=== PATIENT | female | born 1965 | race Caucasian/White ===

== ENCOUNTER 2018-10-02 12:02 | Outpatient (CLI) | payer BC ==
--- NOTE | 2018-10-08 10:51 | MMO ---
Bilateral MAMMO Bilat Screen [facility]. CLINICAL HISTORY: Patient is 53 years old and is seen for screening. The patient has no family history of breast cancer. The patient has no personal history of cancer. VIEWS: The views performed were: bilateral craniocaudal with tomosynthesis and bilateral mediolateral oblique with tomosynthesis. FILMS COMPARED: The present examination has been compared to a prior imaging study performed at MAMMOGRAM FINDINGS: There are scattered fibroglandular densities. There is an area of architectural distortion seen in the CC view only seen in the posterior of the right breast. In the left breast, there are no suspicious masses, calcifications or areas of architectural distortion. IMPRESSION: AREA OF ARCHITECTURAL DISTORTION IN THE RIGHT BREAST REQUIRES ADDITIONAL EVALUATION. SPOT COMPRESSION IS RECOMMENDED. AN ULTRASOUND EXAM IS RECOMMENDED IF NEEDED. THE RESULTS OF THIS EXAM WERE SENT TO THE PATIENT. ACR BI-RADS Category 0 - Incomplete: Need additional imaging evaluation. [facility] will notify the patient of the need for additional imaging services. MAMMOGRAPHY NOTE: 1. A negative mammogram report should not delay a biopsy if a dominant of clinically suspicious mass is present. 2. Approximately 10% to 15% of breast cancers are not detected by mammography. 3. Adenosis and dense breasts may obscure an underlying neoplasm.
== END 2018-10-02 12:03 | disposition home or self-care (01) ==
LOC: BICMAMMO 12:02
PROVIDERS: ATTEND Family Medicine
DX: Z12.31 Encounter for screening mammogram for malignant neoplasm of breast (principal); L90.5 Scar conditions and fibrosis of skin
CPT/HCPCS: 77063; 77067

== ENCOUNTER 2018-10-11 14:22 | Outpatient (CLI) | payer BC ==
--- NOTE | 2018-10-11 14:51 | MMO ---
Right Breast MAMMO Unilat Diag [facility]. CLINICAL HISTORY: Patient is 53 years old and is seen for diagnostic exam. The patient has no family history of breast cancer. The patient has no personal history of cancer. VIEWS: The views performed were: right craniocaudal spot compression with tomosynthesis and right mediolateral with tomosynthesis. FILMS COMPARED: The present examination has been compared to prior imaging studies performed at MAMMOGRAM FINDINGS: There are scattered fibroglandular densities. There are no suspicious masses, suspicious calcifications, or new areas of architectural distortion. The asymmetry seen at screening mammography does not persist at additional imaging, compatible with superimposed tissue. IMPRESSION: THERE IS NO MAMMOGRAPHIC EVIDENCE OF MALIGNANCY. A ROUTINE FOLLOW-UP MAMMOGRAM IN 1 YEAR IS RECOMMENDED. THE RESULTS OF THIS EXAM WERE SENT TO THE PATIENT. ACR BI-RADS Category 1 - Negative MAMMOGRAPHY NOTE: 1. A negative mammogram report should not delay a biopsy if a dominant of clinically suspicious mass is present. 2. Approximately 10% to 15% of breast cancers are not detected by mammography. 3. Adenosis and dense breasts may obscure an underlying neoplasm.
== END 2018-10-11 14:23 | disposition home or self-care (01) ==
LOC: BICMAMMO 14:22
PROVIDERS: ATTEND Family Medicine
DX: Z12.31 Encounter for screening mammogram for malignant neoplasm of breast (principal)
CPT/HCPCS: G0279

== ENCOUNTER 2018-12-20 09:59 | Outpatient (CLI) | payer BC ==
[2018-12-20] MEDS ORDERED: Iopamidol 370 76% 100 ML VIAL ONE (12:46)
--- NOTE | 2018-12-20 13:39 | CT ---
CT ABDOMEN AND PELVIS WITH AND WITHOUT CONTRAST: Date: 12/20/18 COMPARISON: None. HISTORY: Hematuria. TECHNIQUE: Axial CT imaging at 5 mm intervals from lung bases through pubic symphysis with and without IV contra st using a CT urogram protocol. Coronal and sagittal reformatted imaging obtained. FINDINGS: Visualized lung bases are unremarkable. No free intraperitoneal air. No evidence for nephrolithiasis or obstructive uropathy. The liver, spleen, and pancreas are unremarkable. There is heterogeneity of the gallbladder contents which could represent sludge or noncalcified stones. There is a very small hiatal hernia noted. Adrenal glands and kidneys are unremarkable on pre and postcontrast imaging. There is a tiny hypodens ity associated with the mid pole of the left kidney measuring 5 mm, too small to characterize. Urographic phase imaging of bilateral kidneys and ureters appear unremarkable. Evaluation of the bowel is limited without oral contrast media. There is diverticulosis of the descen ding colon and the sigmoid colon with no evidence for diverticulitis. There is a large mass within the anterior aspect of the pelvis abutting the ventral aspect of the sun'aq ammon measuring 9.3 x 8.6 x 11.8 cm. This contains solid components, as well as fat, and is most consis tent with a large ovarian dermoid. There are areas of heterogeneous hypodensity within the uterus sug gesting multiple incompletely assessed uterine fibroids. The vascular structures of the abdomen/pelvis appear patent. There is mild scattered atherosclerotic calcification of the infrarenal abdominal aorta. No abdominal or pelvic lymphadenopathy is noted. Review of the osseous structures demonstrate no worrisome lytic or blastic bone lesion. IMPRESSION: 1. No evidence for nephrolithiasis or obstructive uropathy. No renal mass noted on either side. 2. Large pelvic mass containing fat and solid components consistent with an ovarian dermoid measurin g up to 11.8 cm. 3. Probable gallbladder sludge and/or noncalcified gallstones. 4. Probable uterine fibroid disease. CODE T. POS: OFF
== END 2018-12-20 10:00 | disposition home or self-care (01) ==
LOC: BICCT 09:59 → CT 10:00
PROVIDERS: ATTEND Family Medicine
DX: R31.21 Asymptomatic microscopic hematuria (principal); R19.00 Intra-abdominal and pelvic swelling, mass and lump, unspecified site
CPT/HCPCS: 74178; Q9967

== ENCOUNTER 2019-03-17 06:23 | Outpatient (CLI) | payer BC ==
[2019-03-17 12:07] LABS: Bacteria/HPF None Seen HPF (None Seen); Bilirubin Negative (Negative); Blood, Urine 1+ (Negative); Clarity Clear (Clear); Glucose, Urine (Dipstick) Normal (Negative); Leukocyte Negative Leu/uL (Negative); Nitrite Negative (Negative); Protein, Urine (Dipstick) Negative (Neg-Trace); RBC/HPF 0-3 HPF (0-3); Squamous Epithelial 0-3 HPF (0-3); Urobilinogen Normal mg/dL (Less than 2); WBC/HPF 0-3 HPF (0-3)
[2019-03-17 12:15] LABS: INR-International Normal Ratio 0.9; PTT 29.3 SEC (22.9-36.1); Prothrombin Time 12.1 SEC (12.0-14.7)
[2019-03-17 12:19] LABS: Anion Gap 12 mmol/L (10-20); BUN (Urea Nitrogen) 11 mg/dL (9.8-20.1); Calc. Creatinine Clearance 0 mL/min (70-130); Calcium 9.6 mg/dL (7.8-10.44); Carbon Dioxide 27 mmol/L (22-29); Chloride 104 mmol/L (98-107); Estimated GFR-MDRD 73; Glucose 70 mg/dL (70-105); Potassium 4.1 mmol/L (3.5-5.1); Sodium 139 mmol/L (136-145)
== END 2019-03-17 06:24 | disposition home or self-care (01) ==
LOC: LABBT 06:23
PROVIDERS: ATTEND Obstetrics & Gynecology
DX: Z01.812 Encounter for preprocedural laboratory examination (principal); N39.3 Stress incontinence (female) (male)
CPT/HCPCS: 80048; 81001; 85610; 85730; 87086

== ENCOUNTER 2019-03-24 05:57 | Day surgery (SDC) | payer BC ==
[2019-03-17 09:54] VITALS: BMI 32.8
[2019-03-17 12:02] LABS: Hemoglobin 13.1 g/dL (12.0-16.0); Mean Corpuscular HGB CONC 33.3 g/dL (32.0-36.0); Mean Corpuscular Volume 87.3 fL (78.0-98.0); Mean Platelet Volume 8.3 fL (7.4-10.4); Platelet Count 245 thou/uL (130-400); RBC Distribution Width 11.5 % (11.5-14.5); White Blood Cell (WBC) Count 6.6 thou/uL (4.8-10.8)
[2019-03-24] MEDS ORDERED: Fentanyl 100 MCG/2 ML VIAL ONE ×2 (06:43→11:48)
[2019-03-24] MEDS ORDERED: CeleCOXIB 100 MG CAP ONE (06:52)
[2019-03-24] MEDS ORDERED: Levofloxacin 500 mg/D5W 100 ml Premix Bag ONE (06:52)
[2019-03-24] MEDS ORDERED: Famotidine/PF 20 mg/2ml Vial ONE (06:52)
[2019-03-24] MEDS ORDERED: Scopolamine 1.5 mg/72 hour Patch ONE (06:57)
[2019-03-24] MEDS ORDERED: Iothalamate Meglumine 60% 50 ML VIAL FS ONE (07:01)
[2019-03-24] MEDS ORDERED: Bupivacaine PF 0.5% 30 ML VIAL ONE (07:01)
[2019-03-24] MEDS ORDERED: Clindamycin/D5W 900 mg/50 ml Premix Bag ONE (07:25)
[2019-03-24] MEDS ORDERED: Ropivacaine 0.2% 550 ML 750 ML NERVE BLCK SCH (07:45)
[2019-03-24] MEDS ORDERED: EPINEPHrine 1 MG/ML AMP ONE (07:57)
[2019-03-24] MEDS ORDERED: Ropivacaine HCl/PF 750 ML in Premix Bag 1 BAG NERVE BLCK SCH (08:15)
--- NOTE | 2019-03-24 10:24 | OP ---
DATE OF PROCEDURE: 03/24/2019 PREOPERATIVE DIAGNOSES: A 54-year-old female with history of microscopic hematuria, large pelvic mass. POSTOPERATIVE DIAGNOSES: A 54-year-old female with history of microscopic hematuria, large pelvic mass. PROCEDURES PERFORMED: Cystoscopy, bilateral retrograde, left 6 x 26, right 6 x 24 double-J ureteral stent, Lopez catheter placement. ANESTHESIA: General. COMPLICATIONS: None apparent. DISPOSITION: To General OR room for gynecologic procedure. INDICATIONS FOR PROCEDURE AND HISTORY: Ms. Duenas is a pleasant 54-year-old female, who presented to my office for evaluation of microscopic hematuria. CT demonstrating a large pelvic mass, scheduled for hysterectomy today. Due to proximity and the mass effect of a large pelvic mass on bilateral ureters, intraoperative ureteral stent was advised. Risks and complications of the procedure and indications reviewed. The patient has been fully informed that despite ureteral stent, ureteral injury, bladder injury can ensue. All questions answered to her satisfaction and she desired to proceed. DESCRIPTION OF PROCEDURE: After an informed consent was signed, the patient was taken to the operating room, placed in a dorsal lithotomy position with the genital area prepped and draped in the usual surgical sterile fashion. A 21-Nigerian cystoscope was utilized for cystoscopy, which demonstrated normal ureteral orifices in orthotopic position. No bladder mass, trabeculation, or stones were appreciated. An open-ended catheter was utilized to perform a retrograde pyelogram which demonstrated mild deviation laterally of bilateral ureters due to a large pelvic mass, however, no evidence of hydronephrosis. A left 6 x 26 double-J ureteral stent was passed. As it was tad long on her the left side, we decided to place a 6 x 24 double-J ureteral stent on the right side, which was performed uneventfully with retrograde pyelogram bilateral. Again, noted was deviated mildly pelvic ureters due to a large pelvic mass with no evidence of hydronephrosis. At the end of the procedure, I did place an 18-Nigerian 3-way Lopez catheter for Gynecology as they are going to distend the bladder intraoperatively for visualization. Pending gynecologic progress of surgical intervention, she was informed that elective stent pull will be performed at a later date. Job ID: [id number] [facility]
[2019-03-24] MEDS ORDERED: Ketorolac Tromethamine 30 MG/ML VIAL IVP PRN (10:37)
[2019-03-24] MEDS ORDERED: Promethazine HCl 25 MG/ML VIAL IM PRN ×2 (10:37→13:34)
[2019-03-24] MEDS ORDERED: Ondansetron HCl/PF 4 MG/2 ML Vial IVP PRN (10:37)
[2019-03-24] MEDS ORDERED: Meperidine HCl/PF 25 MG/ML VIAL SLOW IVP PRN ×2 (10:37→13:34)
[2019-03-24] MEDS ORDERED: Ketorolac Tromethamine 30 MG/ML VIAL ONE (11:12)
--- NOTE | 2019-03-24 11:42 | RAD ---
IVP RETROGRADE CD: HISTORY: Stent placement. FINDINGS: Two intraoperative images of the abdomen demonstrate placement of bilateral renal stents. POS: MANDY
--- NOTE | 2019-03-24 11:56 | OP ---
DATE OF PROCEDURE: 03/24/2019 PREOPERATIVE DIAGNOSIS: Pelvic mass. POSTOPERATIVE DIAGNOSIS: Left ovarian dermoid cyst. PROCEDURES PERFORMED: 1. Robotic-assist total laparoscopic hysterectomy with bilateral salpingectomy, self-contained extraction of left adnexal mass through supraumbilical port. 2. Prior to hysterectomy, placement of bilateral ureteral indwelling stents per Dr. Demarco. 3. ON-Q catheter placement. DIRECT MARKETING COORDINATOR: Noy Muñiz PA-C. COMPLICATIONS: None. ESTIMATED BLOOD LOSS: 50 mL. IV FLUIDS: 1 L. INTRAOPERATIVE FINDINGS: Normal-appearing vagina and cervix. Uterus sounds to 6 cm. LAPAROSCOPIC FINDINGS: 1. Large pelvic mass arising from the left ovary, filling the pelvis with intracystic contents, consistent with dermoid, torsion of this ovary noted at the time of removal. 2. Normal-appearing right tube and ovary. 3. Small uterus with serosal fibroids noted. 4. Surgical site was hemostatic. DESCRIPTION OF PROCEDURE: The patient was brought back to the OR from the cystoscopy room, already intubated and with IV fluids running. Once the patient was in OR6, she was placed in dorsal supine position. Her arms were tucked at her side and then her legs were moved to low dorsal lithotomy position. The abdomen and vagina were then prepped and draped in normal fashion for gynecologic laparoscopy. Three-way catheter that had previously been placed was removed as it was no longer sterile and a Lopez catheter was placed using sterile technique with the Lopez and placed with a Jennifer syringe at its tip for bladder manipulation during the case. An operative speculum was placed into the vagina and the cervix was easily visualized and grasped with single-tooth tenaculum. The uterus was sounded to approximately 6 cm. The Relatient-To The Tops manipulator was assembled with a 6 cm tip and a 3.5 cm cup and placed into the uterus and vagina in normal fashion for uterine manipulation. The intrauterine and intravaginal balloons were inflated. The surgeon's gloves were changed and attention was turned to the laparoscopic portion of the procedure. Beginning at approximately 2 cm above the supraumbilical fold, a 12 mm skin incision was made with a scalpel. A Veress needle was placed through the skin incision and the abdomen was insufflated without difficulty. The Veress needle was removed and a 12-mm trocar was placed through the distended abdomen without difficulty. The obturator was then removed from the trocar and the laparoscope was placed through the trocar with the above findings noted. The patient was then placed in Trendelenburg position. The right and left lower quadrant 8-mm ports were placed under direct visualization, and using similar technique as well as a right upper quadrant 11-mm port. All ports were placed without difficulty and in routine fashion. Next, the robotic arms were docked with the monopolar scissors and the bipolar fenestrated graspers placed under direct laparoscopic view into the operative field. The pelvic mass was then manipulated and noted to be arising from the left ovary. It was noted to be torsed as well. The left fallopian tube was edematous proximal to the torsion. The fallopian tube was dissected away from the IP ligament. The pelvic mass was manipulated and the ureter was visually appreciated with palpation, noted to be running well away from the IP ligament. After the fallopian tube was dissected away from the IP ligament at the site of the torsion, the IP ligament was cauterized and transected using bipolar and monopolar cautery. This freed the left ovary and pelvic mass away from the sidewall and it mobilized to the midline. The left ovary was then further dissected away from the pelvic anatomy by cauterizing and transecting the fallopian tube and mesosalpinx as well as the utero-ovarian ligament, completely freeing the mass. The mass was placed in the left upper quadrant away from the operative field. The hysterectomy portion was then began on the patient's left side. The left round ligament was identified, cauterized, and transected. It was divided into anterior and posterior leaves down towards the level of the uterine artery. The bladder reflection was identified and dissected through the anterior leaf, gently dissecting the bladder flap away from the planned colpotomy site. The uterine artery on the patient's left side was skeletonized, cauterized, and transected. Attention was then turned to the contralateral side. The right IP ligament was identified. The ureter on the patient's right side was palpated and visually identified. The IP ligament on the patient's right side was cauterized and transected. The right ovary and fallopian tube were dissected away from the mesosalpinx and pelvic sidewall. The round ligament on the patient's right side was then cauterized, divided into anterior and posterior leaves, and skeletonized down towards the level of the uterine artery. The bladder reflection on the patient's right side was easily identified. The bladder flap was completed across the anterior aspect of the cervix, and in thin layers, the bladder was gently dissected away from the planned colpotomy site. After the bladder flap was created and the uterine arteries were transected bilaterally, attention was turned to the colpotomy portion of the procedure. The colpotomy was completed circumferentially using monopolar scissors. After the colpotomy was complete, the specimen was retracted into the vagina. This included the uterus, right tube, and right ovary. The vaginal cuff and surgical pedicles were then copiously irrigated and any small areas of bleeding were controlled with bipolar cautery. The vaginal cuff was then closed with Stratafix suture in a running fashion and in 2 layers. After the vaginal cuff was closed , it was irrigated and suctioned dry. The pressure was dropped to 6 mmHg and no areas of bleeding were noted. Surgical pedicles were inspected as well at the site of the right and left adnexal dissections and no areas of bleeding were noted. The ovarian specimen was then placed into a laparoscopic bag that had been placed through the supraumbilical incision and GelPOINT entrance site earlier in the case. The bag was brought down into the pelvis and opened up. The ovarian specimen was placed into the bag and cinched closed. The string in the bag was then brought through the GelPOINT at the supraumbilical port site. An ON-Q catheter tip was placed under direct visualization and placed into the pelvis after the specimen had been brought through the supraumbilical incision. At that time, the ovarian specimen was brought through the incision. The bag was opened up to the outside with the ovary contained inside the bag. A small stab incision was made into the ovary and copious amounts of thick gaseous fluid was noted to spontaneous expel from the specimen. Hemostats were used to grab the hair specimen from the dermoid. Once the dermoid was compressed enough to easily pass through the supraumbilical incision, it was brought through, completely contained within the back. Under laparoscopic view with the abdomen re-insufflated, the ON-Q catheter tip was guided down into the pelvis. All instruments were removed from the abdomen and the count was correct. The gas was released from the abdomen. The supraumbilical port site was closed at the fascial layer with Vicryl suture. All 4 skin incisions were closed with Monocryl suture and dressed with Dermabond dressing. The ON-Q catheter had a sterile Tegaderm dressing applied. The vagina was inspected at the end of the case and no bleeding was noted from the vaginal cuff or from the vagina. The patient was then cleaned, dried, extubated, taken out of lithotomy position, and transferred to the recovery room in good condition. Job ID: [id number] MTDD
[2019-03-24] MEDS ORDERED: Simethicone Chewable 80 MG TAB PO PRN (13:34)
[2019-03-24] MEDS ORDERED: Ondansetron PF 4 MG/2 ML Vial IVP PRN (13:34)
[2019-03-24] MEDS ORDERED: Bisacodyl 10 MG SUPP PR PRN (13:34)
[2019-03-24] MEDS ORDERED: Zolpidem Tartrate 5 MG TAB PO PRN (13:34)
[2019-03-24] MEDS ORDERED: HYDROcodone/Acetaminophen 5/325 mg Tablet PO PRN ×2 (13:34)
[2019-03-24] MEDS ORDERED: diphenhydrAMINE 25 MG CAP PO PRN (13:34)
[2019-03-24] MEDS ORDERED: Morphine 4 MG/ML VIAL SLOW IVP PRN (13:34)
[2019-03-24] MEDS ORDERED: Sodium Chloride 0.9% 1,000 ML IV SCH (13:34)
[2019-03-24] MEDS ORDERED: Ibuprofen 800 MG TAB PO SCH (14:00)
[2019-03-24] MEDS ORDERED: diphenhydrAMINE 50 MG/ML VIAL ONE (14:43)
[2019-03-24] MEDS ORDERED: Ondansetron PF 4 MG/2 ML Vial ONE (14:43)
[2019-03-24] MEDS ORDERED: Glycopyrrolate 0.2 MG/ML 5 ML SYRINGE ONE (14:43)
[2019-03-24] MEDS ORDERED: PROPOFOL 200 MG/20 ML VIAL ONE (14:43)
[2019-03-24] MEDS ORDERED: Rocuronium Bromide 10 MG/ML (10ML VIAL) ONE (14:43)
[2019-03-24] MEDS ORDERED: Ketorolac Tromethamine 30 MG/ML VIAL IVP SCH (18:00)
[2019-03-24 20:02] VITALS: BP 131/82; TEMP 98
== END 2019-03-24 20:10 | disposition home or self-care (01) ==
LOC: SDC 05:57 → 3SE 12:29 → SDC 20:10
PROVIDERS: ATTEND Obstetrics & Gynecology
PROC: 0UT94ZZ Resection of Uterus, Percutaneous Endoscopic Approach (ICD-10-PCS; principal; 2019-03-24)
PROC: 0UT54ZZ Resection of Right Fallopian Tube, Percutaneous Endoscopic Approach (ICD-10-PCS; principal; 2019-03-24)
PROC: 0T9780Z Drainage of Left Ureter with Drainage Device, Via Natural or Artificial Opening Endoscopic (ICD-10-PCS; principal; 2019-03-24)
PROC: 0UT04ZZ Resection of Right Ovary, Percutaneous Endoscopic Approach (ICD-10-PCS; principal; 2019-03-24)
DX: D27.1 Benign neoplasm of left ovary (principal); N83.291 Other ovarian cyst, right side; D25.2 Subserosal leiomyoma of uterus; N72 Inflammatory disease of cervix uteri; N39.3 Stress incontinence (female) (male); Z79.899 Other long term (current) drug therapy; Z87.891 Personal history of nicotine dependence; Z88.1 Allergy status to other antibiotic agents
CPT/HCPCS: 36415; 74420; 85027; 86850; 86900; 86901; 88307; C1758; C1769; J0171; J1200; J1885; J1956; J2405; J2704; J2795; J3010; J3490; S0020; S0028

== ENCOUNTER 2020-10-06 21:02 | Emergency (ER) | payer OTHER, BC ==
[2020-10-06] MEDS ORDERED: Ketorolac Tromethamine 30 MG/ML VIAL ONE ×2 (21:31→21:33)
[2020-10-06] MEDS ORDERED: Amoxicillin/Potassium Clav 875 MG TAB ONE (23:03)
== END 2020-10-06 23:05 | disposition home or self-care (01) ==
LOC: ERS 21:02
DX: S61.250A Open bite of right index finger without damage to nail, initial encounter (principal); J45.909 Unspecified asthma, uncomplicated; W54.0XXA Bitten by dog, initial encounter
CPT/HCPCS: 96372; J1885

== ENCOUNTER 2022-01-06 14:52 | Outpatient (CLI) | payer BC | END 2022-01-06 14:53 | disposition home or self-care (01) | LOC: SCSRAD 14:52 | PROVIDERS: ATTEND Family Medicine | DX: M79.605 Pain in left leg (principal) ==

== ENCOUNTER 2022-01-11 08:21 | Outpatient (CLI) | payer BC | END 2022-01-11 08:22 | disposition home or self-care (01) | LOC: ULT 08:21 | PROVIDERS: ATTEND Family Medicine | DX: M79.605 Pain in left leg (principal) ==

== ENCOUNTER 2022-07-14 11:17 | Outpatient (CLI) | payer BC | END 2022-07-14 11:18 | disposition home or self-care (01) | LOC: DTY/OP 11:17 | PROVIDERS: ATTEND Family Medicine | DX: E11.22 Type 2 diabetes mellitus with diabetic chronic kidney disease (principal); N18.9 Chronic kidney disease, unspecified | CPT/HCPCS: 97802 ==

== ENCOUNTER 2023-09-14 11:45 | Outpatient (CLI) | payer BC | END 2023-09-14 11:46 | disposition home or self-care (01) | LOC: PET 11:45 | PROVIDERS: ATTEND Student in an Organized Health Care Education/Training Program | DX: R91.1 Solitary pulmonary nodule (principal); R91.8 Other nonspecific abnormal finding of lung field | CPT/HCPCS: 78815; A9552 ==

== ENCOUNTER 2023-10-02 08:11 | Day surgery (SDC) | payer BC ==
[2023-10-02 08:32] LABS: #Basophils 0.05 10x3/uL (0.0-0.2); %Basophils 0.7 % (0.0-1.0); %Eosinophils 3.2 % (0.0-10.0); %Lymphocytes 27.7 % (21.0-51.0); %Monocytes 8.1 % (0.0-10.0); %Neutrophils 60.2 % (42.0-75.0); Hematocrit 39.5 % (36.0-47.0); Hemoglobin 12.8 g/dL (12.0-16.0); Mean Corpuscular HGB CONC 32.4 g/dL (32.0-36.0); Mean Corpuscular Hemoglobin 28.7 pg (27.0-31.0); Mean Corpuscular Volume 88.6 fL (78.0-98.0); Mean Platelet Volume 9.8 fL (7.4-10.4); Platelet Count 253 10x3/uL (130-400); RBC Distribution Width 12.7 % (11.5-14.5); Red Blood Cell (RBC) Count 4.46 mill/uL (4.20-5.40)
[2023-10-02 08:58] LABS: PTT 30.6 sec (22.9-36.1); Prothrombin Time 12.8 sec (12.0-14.7)
[2023-10-02] MEDS ORDERED: Midazolam HCl 2 mg/2 ml Vial ONE (09:10)
[2023-10-02] MEDS ORDERED: Lidocaine 1% w/Epinephrine 1:100K 20 ML VIAL ONE (09:10)
[2023-10-02] MEDS ORDERED: Lidocaine 1% PF 5 ML VIAL ONE (09:10)
[2023-10-02] MEDS ORDERED: Sodium Bicarbonate 2.5 MEQ/5 ML SDV ONE (09:10)
[2023-10-02] MEDS ORDERED: fentaNYL 50 mcg/mL 1 mL Vial ONE ×2 (09:10→09:11)
[2023-10-02 11:45] VITALS: BP 138/89; TEMP 98.5
== END 2023-10-02 13:40 | disposition home or self-care (01) ==
LOC: CT 08:11
PROVIDERS: ATTEND Student in an Organized Health Care Education/Training Program
PROC: 0BBF3ZX Excision of Right Lower Lung Lobe, Percutaneous Approach, Diagnostic (ICD-10-PCS; principal; 2023-10-02)
DX: C34.31 Malignant neoplasm of lower lobe, right bronchus or lung (principal); Z88.1 Allergy status to other antibiotic agents; Z91.041 Radiographic dye allergy status; Z88.8 Allergy status to other drugs, medicaments and biological substances; F17.210 Nicotine dependence, cigarettes, uncomplicated
CPT/HCPCS: 32408; 36415; 71045; 77012; 85025; 85610; 85730; 88305; 88333; 88334; 88341; 88342; 88360; J2250; J3010

== ENCOUNTER 2023-10-12 08:30 | Inpatient (IN) | payer BC ==
[2023-10-12 11:36] VITALS: BMI 33.3
[2023-10-16] MEDS ORDERED: EPINEPHrine 1 MG/ML VIAL ONE (06:45)
[2023-10-16] MEDS ORDERED: Bupivacaine 0.25% HCL 30 ML VIAL ONE (06:45)
[2023-10-16] MEDS ORDERED: PROPOFOL 20 ML ONE (07:11)
[2023-10-16] MEDS ORDERED: Fentanyl 250 MCG/5 ML VIAL ONE (07:11)
[2023-10-16] MEDS ORDERED: Clindamycin/D5W 900 mg/50 ml Premix Bag ONE (07:19)
[2023-10-16] MEDS ORDERED: Glycopyrrolate 0.2 MG/ML 5 ML SYRINGE ONE (08:24)
[2023-10-16] MEDS ORDERED: PHENYLEPHRINE-NS 100 MCG/ML 10 ML SYRINGE ONE (08:24)
[2023-10-16] MEDS ORDERED: Lidocaine 1% PF 5 ML VIAL ONE (09:41)
[2023-10-16] MEDS ORDERED: Dexamethasone 4 mg/ml Vial ONE (09:42)
[2023-10-16] MEDS ORDERED: Ondansetron PF 4 MG/2 ML Vial ONE (09:42)
[2023-10-16] MEDS ORDERED: Rocuronium Bromide 10 MG/ML (10ML VIAL) ONE (10:13)
[2023-10-16] MEDS ORDERED: ePHEDrine Sulfate 50 MG/10 ML VIAL ONE (10:34)
[2023-10-16] MEDS ORDERED: SUGAMMADEX SODIUM 200 MG/2 ML VIAL ONE (11:25)
[2023-10-16] MEDS ORDERED: HYDROmorphone 2 MG/ML VIAL ONE (11:25)
[2023-10-16] MEDS ORDERED: Ondansetron HCl/PF 4 MG/2 ML Vial IVP PRN (11:26)
[2023-10-16] MEDS ORDERED: HYDROmorphone 2 MG/ML VIAL SLOW IVP PRN (11:26)
[2023-10-16] MEDS ORDERED: Promethazine HCl 25 MG/ML VIAL IM PRN ×2 (11:26→12:57)
[2023-10-16] MEDS ORDERED: PACU-Morphine 4MG/ML VIAL SLOW IVP PRN (11:26)
[2023-10-16] MEDS ORDERED: Ketorolac Tromethamine 30 MG (1 mL) VIAL ONE ×2 (11:48→17:50)
[2023-10-16] MEDS ORDERED: fentaNYL 50 mcg/mL 1 mL Vial ONE (12:28)
[2023-10-16] MEDS ORDERED: hydrALAZINE 20 MG/ML VIAL SLOW IVP PRN (12:57)
[2023-10-16] MEDS ORDERED: CABG-Clindamycin/D5W 900 MG in Premix 1 BAG IVPB SCH (12:57)
[2023-10-16] MEDS ORDERED: Morphine 4 MG/ML VIAL SLOW IVP PRN (12:57)
[2023-10-16] MEDS ORDERED: Ondansetron PF 4 MG/2 ML Vial IVP PRN (12:57)
[2023-10-16] MEDS ORDERED: Ipratropium/Albuterol 3 ML NEB NEB PRN (12:57)
[2023-10-16] MEDS ORDERED: HYDROcodone/Acetaminophen 5/325 mg Tablet PO PRN (12:57)
[2023-10-16] MEDS ORDERED: HYDROmorphone 0.5 MG/0.5 ML SYRINGE ONE ×2 (13:20→14:58)
[2023-10-16 13:25] LABS: #Basophils 0.04 10x3/uL (0.0-0.2); #Eosinphils Less than 0.03 10x3/uL (0.0-0.7); %Basophils 0.2 % (0.0-1.0); %Eosinophils 0.1 % (0.0-10.0); %Lymphocytes 3.7 % (21.0-51.0); %Monocytes 1.7 % (0.0-10.0); %Neutrophils 93.9 % (42.0-75.0); Hematocrit 39.6 % (36.0-47.0); Mean Corpuscular HGB CONC 32.8 g/dL (32.0-36.0); Mean Corpuscular Hemoglobin 29.3 pg (27.0-31.0); Mean Corpuscular Volume 89.4 fL (78.0-98.0); Mean Platelet Volume 10.3 fL (7.4-10.4); Platelet Count 275 10x3/uL (130-400); Red Blood Cell (RBC) Count 4.43 mill/uL (4.20-5.40)
[2023-10-16 13:50] LABS: Anion Gap 13 mmol/L (10-20); BUN (Urea Nitrogen) 19 mg/dL (9.8-20.1); Calc. Creatinine Clearance 104 mL/min (70-130); Calcium 8.7 mg/dL (7.8-10.44); Carbon Dioxide 22 mmol/L (22-29); Chloride 107 mmol/L (98-107); Estimated GFR 82; Glucose 187 mg/dL (70-105); Phosphorus 3.3 mg/dL (2.3-4.7); Potassium 4.2 mmol/L (3.5-5.1); Sodium 138 mmol/L (136-145)
[2023-10-16] MEDS ORDERED: Acetaminophen 325 MG TAB ONE (17:50)
[2023-10-16] MEDS ORDERED: Gabapentin 300 MG CAP ONE (17:50)
[2023-10-16] MEDS ORDERED: Cyclobenzaprine 10 MG TAB ONE (17:50)
[2023-10-16] MEDS: Cyclobenzaprine 10 MG TAB PO SCH (17:56)
[2023-10-16] MEDS: Gabapentin 300 MG CAP PO SCH (17:56)
[2023-10-16] MEDS: Acetaminophen 325 MG TAB PO SCH (17:57)
[2023-10-16] MEDS: Ketorolac Tromethamine 30 MG (1 mL) VIAL IVP SCH (17:57)
[2023-10-16] MEDS: HYDROcodone/Acetaminophen 5/325 mg Tablet PO PRN (21:09)
[2023-10-16] MEDS: Transdermal Patch Removal TOP SCH (23:06)
[2023-10-17] MEDS: Sodium Chloride 0.9% 1,000 ML IV SCH (06:03)
[2023-10-17] MEDS ORDERED: Lidocaine 4% Patch TD SCH (09:00)
[2023-10-17] MEDS: Lidocaine 4% Patch TD SCH (09:47)
[2023-10-17] MEDS: Ezetimibe 10 MG TAB PO SCH (09:48)
[2023-10-17] MEDS ORDERED: Famotidine 20 MG TAB PO PRN (15:09)
[2023-10-17] MEDS: ALPRAZolam 0.25 MG TAB PO PRN (21:21)
[2023-10-17] MEDS: Metoprolol Tartrate 25 MG TAB PO SCH (21:21)
[2023-10-18] MEDS: Metoprolol Tartrate 25 MG TAB PO SCH (09:09)
[2023-10-18 11:37] VITALS: TEMP 98
[2023-10-18 11:46] VITALS: BP 129/74
== END 2023-10-18 12:53 | disposition home or self-care (01) | DRG 168 ==
LOC: SURG A 10-16 06:20 → EDSTATUS 10-16 08:30 → 2NO 10-16 19:18
PROVIDERS: ADMIT Student in an Organized Health Care Education/Training Program; ATTEND Student in an Organized Health Care Education/Training Program
PROC: 07B74ZX Excision of Thorax Lymphatic, Percutaneous Endoscopic Approach, Diagnostic (ICD-10-PCS; principal; 2023-10-16)
PROC: 0BBF8ZZ Excision of Right Lower Lung Lobe, Via Natural or Artificial Opening Endoscopic (ICD-10-PCS; 2023-10-16)
PROC: 8E0W8CZ Robotic Assisted Procedure of Trunk Region, Via Natural or Artificial Opening Endoscopic (ICD-10-PCS; 2023-10-16)
PROC: 3E033XZ Introduction of Vasopressor into Peripheral Vein, Percutaneous Approach (ICD-10-PCS; 2023-10-16)
DX: C34.31 Malignant neoplasm of lower lobe, right bronchus or lung (principal); E11.9 Type 2 diabetes mellitus without complications; F41.9 Anxiety disorder, unspecified; E78.5 Hyperlipidemia, unspecified; K63.5 Polyp of colon; J45.40 Moderate persistent asthma, uncomplicated; R91.1 Solitary pulmonary nodule; Z90.89 Acquired absence of other organs; Z90.710 Acquired absence of both cervix and uterus; Z87.891 Personal history of nicotine dependence
CPT/HCPCS: 71045; 80048; 83735; 84100; 85025; 86850; 86900; 86901; 88305; 88309; 88312; A4314; C1776; J0171; J0665; J1100; J1170; J1885; J2405; J2704; J3010; J3490; J7050

== ENCOUNTER 2023-10-12 11:11 | Outpatient (CLI) | payer BC ==
[2023-10-12 12:21] LABS: Hematocrit 40.2 % (34.9-44.5); Hemoglobin 13.5 g/dL (12.0-15.5); Mean Corpuscular HGB CONC 33.6 g/dL (32.0-36.0); Mean Corpuscular Hemoglobin 29.2 pg (27.0-33.0); Mean Corpuscular Volume 86.8 fL (81.6-98.3); Mean Platelet Volume 10.6 fL (7.4-10.4); Platelet Count 293 10x3/uL (150-450); RBC Distribution Width 12.9 % (11.5-14.5); Red Blood Cell (RBC) Count 4.63 10x6/uL (3.90-5.03); White Blood Cell (WBC) Count 8.5 10x3/uL (3.5-10.5)
[2023-10-12 12:36] LABS: Anion Gap 13 mmol/L (10-20); BUN (Urea Nitrogen) 28 mg/dL (9.8-20.1); Calc. Creatinine Clearance 0 mL/min (70-130); Calcium 9.4 mg/dL (7.8-10.44); Carbon Dioxide 25 mmol/L (22-29); Chloride 105 mmol/L (98-107); Estimated GFR 72; Glucose 115 mg/dL (70-105); Potassium 4.8 mmol/L (3.5-5.1); Sodium 138 mmol/L (136-145)
== END 2023-10-12 11:12 | disposition home or self-care (01) ==
LOC: LABBT 11:11
PROVIDERS: ATTEND Student in an Organized Health Care Education/Training Program
DX: Z01.812 Encounter for preprocedural laboratory examination (principal); C7A.090 Malignant carcinoid tumor of the bronchus and lung
CPT/HCPCS: 80048; 85027

== ENCOUNTER 2023-10-30 13:06 | Outpatient (CLI) | payer BC | END 2023-10-30 13:07 | disposition home or self-care (01) | LOC: RAD 13:06 | PROVIDERS: ATTEND Student in an Organized Health Care Education/Training Program | DX: C34.31 Malignant neoplasm of lower lobe, right bronchus or lung (principal); J90 Pleural effusion, not elsewhere classified | CPT/HCPCS: 71046 ==